=== PATIENT | male | born 1980 | race African-American/Black ===

== ENCOUNTER 2019-07-12 23:15 | Emergency (ER) | payer MEDICAID, OTHER ==
[~2019-07-12] VITALS: Ht 177.8 cm; Wt 81.6 kg
[2019-07-13 06:08] VITALS: BP 129/86
[2019-07-13] MEDS ORDERED: SODIUM CHLORIDE 0.9% 1,000 ML IVB ONE (07:25)
[2019-07-13 08:24] LABS: Urine Bacteria NONE SEEN /hpf (None Seen); Urine Blood TRACE /uL (Negative); Urine Mucus FEW (None Seen); Urine Specific Gravity 1.016 (1.001-1.035); Urine WBC 2 /hpf (0 - 3)
[2019-07-13 08:38] LABS: Alcohol, Urine < 3.0 mg/dL (0-5); Amphetamine Screen, Urine POSITIVE (NEGATIVE); Barbiturate Scree,Urine NEGATIVE (NEGATIVE); Cannabinoid Screen, Urine POSITIVE (NEGATIVE); Cocaine Screen, Urine NEGATIVE (NEGATIVE); Opiate Scree,Urine NEGATIVE (NEGATIVE); Phencyclidine Screen, Urine NEGATIVE (NEGATIVE)
[2019-07-13 08:45] LABS: Benzodiazephine Screen, Urine NEGATIVE (NEGATIVE)
== END 2019-07-13 08:10 | disposition left against medical advice (07) ==
LOC: EDBD 23:15 → ER 23:15
DX: F14.10 Cocaine abuse, uncomplicated (principal); F11.10 Opioid abuse, uncomplicated; F17.210 Nicotine dependence, cigarettes, uncomplicated
CPT/HCPCS: 71046; 80307; 81001

== ENCOUNTER 2022-06-16 14:16 | Emergency (ER) | payer MEDICAID ==
[~2022-06-16] VITALS: Ht 185.4 cm; Wt 76.0 kg
[2022-06-16 15:22] VITALS: BP 117/82
[2022-06-16] MEDS ORDERED: TETANUS-DIPTH-ACEL PERTUSSIS 0.5ML SYR Tdap IM ONE (15:45)
[2022-06-16] MEDS ORDERED: CEPH-510 PO (16:02)
== END 2022-06-16 16:30 | disposition home or self-care (01) ==
LOC: ER 14:16
DX: S61.213A Laceration without foreign body of left middle finger without damage to nail, initial encounter (principal); F17.210 Nicotine dependence, cigarettes, uncomplicated; Z59.00 Homelessness unspecified; Z79.2 Long term (current) use of antibiotics; W26.0XXA Contact with knife, initial encounter; Y93.89 Activity, other specified; Y92.89 Other specified places as the place of occurrence of the external cause; Y99.8 Other external cause status
CPT/HCPCS: 12002; 90471; 90715; 99283; J2001

== ENCOUNTER 2022-06-28 20:21 | Emergency (ER) | payer MEDICAID ==
[~2022-06-28] VITALS: Ht 185.4 cm; Wt 81.0 kg
[2022-06-28 20:21] VITALS: BP 128/90
[~2022-06-28 20:21] MED LIST: CEPH-510 PO
== END 2022-06-28 23:58 | disposition home or self-care (01) ==
LOC: ER 20:21
DX: S61.213D Laceration without foreign body of left middle finger without damage to nail, subsequent encounter (principal); F17.210 Nicotine dependence, cigarettes, uncomplicated; F12.90 Cannabis use, unspecified, uncomplicated; W26.0XXD Contact with knife, subsequent encounter

== ENCOUNTER 2023-10-27 13:38 | Emergency (ER) | payer MEDICAID ==
[~2023-10-27] VITALS: Ht 185.4 cm; Wt 85.9 kg
[2023-10-27 15:23] VITALS: BP 119/86; PULSE 75; RESP 14; O2SAT 98
[2023-10-28] MEDS ORDERED: CEPH500C PO (09:07)
[2023-10-28] MEDS ORDERED: NAPR-746 PO (09:07)
== END 2023-10-27 16:51 | disposition left against medical advice (07) ==
LOC: ER 13:38
DX: Z48.00 Encounter for change or removal of nonsurgical wound dressing (principal); Z53.21 Procedure and treatment not carried out due to patient leaving prior to being seen by health care provider

== ENCOUNTER 2023-10-28 07:21 | Emergency (ER) | payer MEDICAID ==
[~2023-10-28] VITALS: Ht 185.4 cm; Wt 81.0 kg
[2023-10-28 08:54] VITALS: BP 117/88; PULSE 78; RESP 20; TEMP 97.9; O2SAT 97
[2023-10-28] MEDS ORDERED: CEPH500C PO (09:07)
[2023-10-28] MEDS ORDERED: NAPR-746 PO (09:07)
== END 2023-10-28 09:15 | disposition home or self-care (01) ==
LOC: ER 07:21
DX: S90.422D Blister (nonthermal), left great toe, subsequent encounter (principal); F17.210 Nicotine dependence, cigarettes, uncomplicated; F12.10 Cannabis abuse, uncomplicated; Z48.00 Encounter for change or removal of nonsurgical wound dressing; W26.9XXD Contact with unspecified sharp object(s), subsequent encounter

== ENCOUNTER 2024-06-01 16:18 | Emergency (ER) | payer MEDICAID, OTHER ==
[~2024-06-01] VITALS: Ht 185.4 cm; Wt 79.9 kg
[~2024-06-01 16:18] MED LIST changes: +CEPH500C PO; +NAPR-746 PO
[2024-06-01 16:39] VITALS: BP 132/94; PULSE 87; RESP 18; TEMP 98.6; O2SAT 98
[2024-06-01] MEDS ORDERED: BACDST PO (17:10)
[2024-06-01] MEDS: ACETAMINOPHEN 325 MG TAB PO ONE (17:13)
--- NOTE | 2024-06-01 17:13 | ED.PDOC ---
History of Present Illness(SKN HPI Comments A 44-YEAR-OLD MALE WITH NO PMHX PRESENTS WITH A CHIEF COMPLAINT OF INSECT BITE X 4 DAYS AGO. PATIENT STATES THAT HIS BITES ARE ON TOP OF HIS LEFT THIGH. PATIENT REPORTS THAT HE IS HOMELESS AND THINKS HE GOT BIT AT NIGHT SOMEWHERE WHEN HE WAS SLEEPING. PATIENT DENIES ANY PUS OR DRAINAGE FROM THE PUNCTURE SITE. NO OTHER SYMPTOMS OR MODIFYING FACTORS PRESENT AT THIS TIME. Chief Complaint: Insect Bite Time Seen by MD: 17:07 Primary Care Provider: NONE History of Present Illness: Nurses Notes, Medications, Allergies Allergies: Coded Allergies: NO KNOWN ALLERGIES (Unverified , 07/13/19) Home Meds Active Scripts Naproxen (Naproxen) 500 Mg Tab, 500 MG PO BID, #30 TAB Prov:JOSE LUIS MIKE 06/01/24 Sulfamethoxazole W/Trimethopri (Bactrim Ds Tablet) 1 Tab Tb, 1 TAB PO BID for 10 Days, #20 TAB Prov:JOSE LUIS MIKE 06/01/24 Naproxen (Naproxen) 500 Mg Tab, 500 MG PO BID, #24 TAB Prov:JOSE LUIS MIKE 10/28/23 Cephalexin Monohydrate (Cephalexin) 500 Mg Cap, 1 CAP PO QID, #28 CAP Prov:JOSE LUIS MIKE 10/28/23 Cephalexin ( Keflex 500) 500 Mg Cap, 1 CAP PO QID for 7 Days, #28 CAP Prov:JOSE LUIS MIKE 06/16/22 Information Source: Patient Mode of Arrival: Ambulatory Severity: Mild Timing: Days Duration: Since onset, Days Prehospital treatment: None Location: Extremities (LEFT ANTERIOR THIGH ) Mechanism: Insect Occurence: Outdoors Object: None Condition of Object: None Wound Type: Other Immunization Status of Animal: NA History of: None Associated Signs and Symptoms: Redness, Pain Past Medical History PAST MEDICAL HISTORY: Denies Surgical History: Denies all surgeries Family History Family History: Unknown Social History Smoker: Cigarettes, Less Than 1 Pack/Day Alcohol: Denies ETOH Use Drugs: Marijuana Lives In: Home Constitutional: denies: chills, diaphoresis, fatigue, fever, malaise, sweats, weakness, others EENTM: denies: blurred vision, double vision, ear bleeding, ear discharge, ear drainage, ear pain, ear ringing, eye pain, eye redness, hearing loss, mouth pain, mouth swelling, nasal discharge, nose bleeding, nose congestion, nose pain, photophobia, tearing, throat pain, throat swelling, voice changes, others Respiratory: denies: cough, hemoptysis, orthopnea, SOB at rest, shortness of breath, SOB with excertion, stridor, wheezing, others Cardiovascular: denies: chest pain, dizzy spells, diaphoresis, Dyspnea on exertion, edema, irregular heart beat, left arm pain, lightheadedness, palpitat ions, PND, syncope, others Gastrointestinal: denies: abdomen distended, abdominal pain, blood streaked bow els, constipated, diarrhea, dysphagia, difficulty swallowing, hematemesis, melena, nausea, poor appetite, poor fluid intake, rectal bleeding, rectal pain, vomiting, others Genitourinary: denies: burning, dysuria, flank pain, frequency, hematuria, incontinence, penile discharge, penile sore, pain, testicle pain, testicle swelling, urgency, others Neurological: denies: dizziness, fainting, headache, left sided numbness, left sided weakness, numbness, paresthesia, pre-existing deficit, right sided numbness, right sided weakness, seizure, speech problems, tingling, tremors, weakness, others Musculoskeletal: denies: back pain, gout, joint pain, joint swelling, muscle pain, muscle stiffness, neck pain, others Integumetry: reports: lumps (ON LEFT ANTERIOR THIGH. ), wounds; denies: bruises, change in color, change in hair/nails, dryness, laceration, lesions, rash, others Allergic/Immunocompromised: denies: Difficulty Healing, Frequent Infections, Hives, Itching, others Hematologic/Lymphatic: denies: anemia, blood clots, easy bleeding, easy bruising, swollen glands, others Endocrine: denies: excessive hunger, excessive sweating, excessive thirst, excessive urination, flushing, intolerance to cold, intolerance to heat, unexplained weight gain, unexplained weight loss, others Psychiatric: denies: anxiety, bipolar disorder, depression, hopeless, panic disorder, schizophrenia, sleepless, suicidal, others All Other Systems: Reviewed and Negative Physical Exam General Appearance: No Apparent Distress, Normal HEENT: Normal ENT Inspection, PERRL/EOMI, Pharynx Normal, TMs Normal Neck: Full Range of Motion, Non-Tender, Normal, Normal Inspection Respiratory: Chest Non-Tender, Lungs Clear, No Accessory Muscle Use, No Respiratory Distress, Normal Breath Sounds Cardiovascular: No Edema, No JVD, No Murmur, No Gallop, Normal Peripheral Pulses, Regular Rate/Rhythm Breast Exam: Deferred Gastrointestinal: No Organomegaly, Non Tender, No Pulsatile Mass, Normal Bowel Sounds, Soft Genitalia: Deferred Pelvic: Deferred Rectal: Deferred Extremities: No calf tenderness, Normal capillary refill, Normal range of motion, No pedal edema, Tender (WITH A FEW SMALL RED BUMP ON LEFT ANTERIOR THIGH, NO SWELLING AND DRAINAGE. 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 INSECT BITE?? ) Peripheral Pulses: 2+ carotid (R), 2+ carotid (L) Lymphatic: No Adenopathy Was a procedure done? Was a procedure done?: No Differential Diagnosis (INTG) Differential Diagnosis: Abrasion Differential Diagnosis: Contact Dermatitis, Impetigo, Intertrigo, Other (INSECT BITE OF LEFT THIGH ) Differential Diagnosis: Abrasion X-Ray, Labs, Meds, VS Vital Signs Date Time Temp Pulse Resp B/P (MAP) Pulse Ox O2 Delivery O2 Flow Rate FiO2 06/01/24 16:39 98.6 87 18 132/94 (107) 98 06/01/24 16:39 87 18 98 Room Air 0 06/01/24 16:39 98.6 87 18 132/94 (107) 98 98.6 Current Medications Medications (Trade) Dose Ordered Sig/Mike Route Start Time Stop Time Status Last Admin Acetaminophen (Tylenol Tablet) 1,000 mg ONCE ONCE PO 06/01/24 17:15 06/01/24 17:16 DC 06/01/24 17:13 X-Ray, Labs, Meds, VS Comment TREATMENT: TYLENOL 1GM PO Time of 1ST Reevaluation: 17:37 Reevaluation 1ST: Unchanged Patient Education/Counseling: Diagnosis, Treatment, Need For Follow Up Family Education/Counseling: Diagnosis, Treatment, Need For Follow Up Medical Screening: No EMC Exist At This Time Departure 1 Departure Time of Disposition: 18:00 Impression: Primary Impression: Insect bite of thigh, left Qualified Codes: S70.362A - Insect bite (nonvenomous), left thigh, initial encounter; W57.XXXA - Bitten or stung by nonvenomous insect and other nonvenomous arthropods, initial encounter Disposition: HOME / SELF CARE / HOMELESS Condition: Stable Additional Instructions: FOLLOW UP WITH YOUR PCP IN 1-2 DAYS. RETURN TO THE ER IF YOUR SYMPTOMS WORSEN. e-Prescriptions Naproxen (Naproxen) 500 Mg Tab 500 MG PO BID, #30 TAB Prov: JOSE LUIS MIKE 06/01/24 Sulfamethoxazole W/Trimethopri (Bactrim Ds Tablet) 1 Tab Tb 1 TAB PO BID for 10 Days, #20 TAB Prov: JOSE LUIS MIKE 06/01/24 Discharged With: Self Critical Care Note Critical Care Time?: No Stability Stability form required: No Heart Score Heart Score: Heart Score Response (Comments) Value History N/A 0 EKG N/A 0 Age N/A 0 Risk Factors N/A 0 Troponin N/A 0 Total 0 I personally scribed for JOSE LUIS MIKE ([email or web address]) on 06/01/24 at 17:13. Electronically submitted by Nelson Hinojosa ([email or web address]). JOSE LUIS MIKE Jun 01, 2024 17:13
== END 2024-06-01 16:33 | disposition home or self-care (01) ==
LOC: ER 16:18
DX: S70.362A Insect bite (nonvenomous), left thigh, initial encounter (principal); F17.210 Nicotine dependence, cigarettes, uncomplicated; Z79.899 Other long term (current) drug therapy; W57.XXXA Bitten or stung by nonvenomous insect and other nonvenomous arthropods, initial encounter; Y93.89 Activity, other specified; Y92.89 Other specified places as the place of occurrence of the external cause; Y99.8 Other external cause status

== ENCOUNTER 2024-06-02 09:05 | Emergency (ER) | payer MEDICAID ==
[~2024-06-02] VITALS: Ht 185.4 cm; Wt 80.0 kg
[~2024-06-02 09:05] MED LIST changes: +BACDST PO
--- NOTE | 2024-06-02 09:41 | ED.PDOC ---
History of Present Illness HPI Comments 44M presents to the ER w/ no prior Hx associated to the c/c of UE numbness. Pt reports on being in the ER yesterday due from a bug bite on his thigh and today came in for having the left arm numbness for 1 month. Pt states that he forgot to tell us yesterday about the numbness. Social Hx of tobacco and marijuana use, but denies alcohol and is homeless. Denies chills, fever, N/V/D, SOB, CP or other associated symptoms, modifiers or recent injuries or sick contact at this time. Chief Complaint: Upper Extremity Time Seen by MD: 09:15 Primary Care Provider: none Reviewed Notes: Nurses Notes, Medications, Allergies Allergies: Coded Allergies: NO KNOWN ALLERGIES (Unverified , 07/13/19) Home Meds Active Scripts Naproxen (Naproxen) 500 Mg Tab, 500 MG PO BID, #30 TAB Prov:JOSE LUIS MIKE 06/01/24 Sulfamethoxazole W/Trimethopri (Bactrim Ds Tablet) 1 Tab Tb, 1 TAB PO BID for 10 Days, #20 TAB Prov:JOSE LUIS MIKE 06/01/24 Naproxen (Naproxen) 500 Mg Tab, 500 MG PO BID, #24 TAB Prov:JOSE LUIS MIKE 10/28/23 Cephalexin Monohydrate (Cephalexin) 500 Mg Cap, 1 CAP PO QID, #28 CAP Prov:JOSE LUIS MIKE 10/28/23 Cephalexin ( Keflex 500) 500 Mg Cap, 1 CAP PO QID for 7 Days, #28 CAP Prov:JOSE LUIS MIKE 06/16/22 Information Source: Patient Mode of Arrival: Ambulatory Severity: Moderate Timing: Weeks Duration: Since onset Prehospital treatment: None Past Medical History PAST MEDICAL HISTORY: Denies Surgical History: Denies all surgeries Family History Family History: Reviewed,noncontributory to illness, Unknown Social History Smoker: Cigarettes, Less Than 1 Pack/Day Alcohol: Denies ETOH Use Drugs: Marijuana Lives In: Homeless Constitutional: denies: chills, diaphoresis, fatigue, fever, malaise, sweats, weakness, others EENTM: denies: blurred vision, double vision, ear bleeding, ear discharge, ear drainage, ear pain, ear ringing, eye pain, eye redness, hearing loss, mouth pain, mouth swelling, nasal discharge, nose bleeding, nose congestion, nose pain, photophobia, tearing, throat pain, throat swelling, voice changes, others Respiratory: denies: cough, hemoptysis, orthopnea, SOB at rest, shortness of breath, SOB with excertion, stridor, wheezing, others Cardiovascular: denies: chest pain, dizzy spells, diaphoresis, Dyspnea on exertion, edema, irregular heart beat, left arm pain, lightheadedness, palpitations, PND, syncope, others Gastrointestinal: denies: abdomen distended, abdominal pain, blood streaked bowels, constipated, diarrhea, dysphagia, difficulty swallowing, hematemesis, melena, nausea, poor appetite, poor fluid intake, rectal bleeding, rectal pain, vomiting, others Genitourinary: denies: burning, dysuria, flank pain, frequency, hematuria, incontinence, penile discharge, penile sore, pain, testicle pain, testicle swelling, urgency, others Neurological: reports: numbness; denies: dizziness, fainting, headache, left sided numbness, left sided weakness, paresthesia, pre-existing deficit, right sided numbness, right sided weakness, seizure, speech problems, tingling, tremors, weakness, others Musculoskeletal: denies: back pain, gout, joint pain, joint swelling, muscle pain, muscle stiffness, neck pain, others Integumetry: denies: bruises, change in color, change in hair/nails, dryness, laceration, lesions, lumps, rash, wounds, others Allergic/Immunocompromised: denies: Difficulty Healing, Frequent Infections, Hives, Itching, others Hematologic/Lymphatic: denies: anemia, blood clots, easy bleeding, easy bruising, swollen glands, others Physical Exam General Appearance: No Apparent Distress, Normal HEENT: Normal ENT Inspection, Pharynx Normal, TMs Normal Neck: Full Range of Motion, Non-Tender, Normal, Normal Inspection Respiratory: Chest Non-Tender, Lungs Clear, No Accessory Muscle Use, No Respiratory Distress, Normal Breath Sounds Cardiovascular: No Edema, No JVD, No Murmur, No Gallop, Normal Peripheral P ulses, Regular Rate/Rhythm Breast Exam: Deferred Gastrointestinal: No Organomegaly, Non Tender, No Pulsatile Mass, Normal Bowel Sounds, Soft Genitalia: Deferred Pelvic: Deferred Rectal: Deferred Extremities: No calf tenderness, Normal capillary refill, Normal inspection, Normal range of motion, Non-tender, No pedal edema Musculoskeletal : Apperance: Normal 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 Was a procedure done?: No Differential Dx Considerations may include: Malingering, Ca, to TIA, cervical spine stenosis, radiculopathy, electrolyte or multivitamin deficiency X-Ray, Labs, Meds, VS Vital Signs Date Time Temp Pulse Resp B/P (MAP) Pulse Ox O2 Delivery O2 Flow Rate FiO2 06/02/24 12:07 71 18 100 Room Air 06/02/24 12:07 71 18 146/106 (119) 100 06/02/24 09:22 99.2 68 17 155/98 (117) 99 Time of 1ST Reevaluation: 09:45 Reevaluation 1ST: Unchanged Patient Education/Counseling: Diagnosis, Treatment, Prognosis Family Education/Counseling: No Family Present Departure 1 Departure Time of Disposition: 17:41 Impression: Primary Impression: Numbness and tingling in left arm Disposition: 01 HOME / SELF CARE / HOMELESS Condition: Stable Additional Instructions: Thank you for visiting our Emergency Room. I wish you full and complete recovery. Please follow the following instructions: 1. Take your medication bottles with you to EVERY DOCTOR'S VISIT (including your primary doctor). 2. Please follow up with your primary doctor in 2-3 days or sooner if symptoms do not improve. 3. Please read all the papers given to you at the time of the discharge so that you understand your condition better. 4. Please note that the emergency room visits are focused and not necessarily comprehensive. Therefore, it is possible that some occult medical conditions may go undiagnosed in the ER. 5. The emergency room visits are not and should not be thought of as replacement for regular visits with your primary doctor. 6. Therefore, it is absolutely critical that you follows up with your primary doctor on regular basis to make sure you receives a complete and comprehensive care. 7. I recommended the you take the hospital discharge papers to your primary care physician and other doctors' offices with you. 8. Go to your nearest emergency room if you think your condition gets worse or you think your condition is an emergency. Discharged With: Self Critical Care Note Critical Care Time?: No Stability Stability form required: No I personally scribed for LADI PASTOR MD ([email or web address]) on 06/02/24 at 09:41. Electronically submitted by Antoine Hoff ([email or web address]). LADI PASTOR MD Jun 02, 2024 09:41
--- NOTE | 2024-06-02 10:02 | DVH ---
INDICATION: r arm tingling COMPARISON: None TECHNIQUE: 3 views of the cervical spine were obtained. FINDINGS: The cervical vertebral alignment is normal. The predental space is normal. The intervertebral disc spaces are well-maintained. No significant facet arthropathy is noted. No acute fracture, vertebral compression deformity or aggressive osseous lesions. The imaged lung apices are unremarkable. IMPRESSION: No acute fracture.
[2024-06-02 12:07] VITALS: BP 146/106; PULSE 71; RESP 18; O2SAT 100
== END 2024-06-02 12:10 | disposition home or self-care (01) ==
LOC: ER 09:05
DX: R20.2 Paresthesia of skin (principal); R20.0 Anesthesia of skin; F17.210 Nicotine dependence, cigarettes, uncomplicated; Z59.00 Homelessness unspecified
CPT/HCPCS: 72040